=== PATIENT | female | born 1990 | race Caucasian/White ===

== ENCOUNTER 2018-05-08 07:28 | Emergency (ER) | payer OTHER ==
[~2018-05-08] VITALS: Ht 160 cm; Wt 47.6 kg
[~2018-05-08 07:28] MED LIST: BENTYL 20 MG TA20 M1 PO; CARAFATE 1 GM TA1 G1 PO; NOHOMEMEDICATIONS; ZOFRAN ODT4 MG DISSOLVE
[2018-05-08 07:52] LABS: HEMATOCRIT 44.5 % (37.0-47.0); HEMOGLOBIN 14.9 gm/dL (12.0-15.0); MCH 30.9 pg (26.0-34.0); MCHC 33.5 g/dL (28.0-37.0); MCV 92.3 fL (80.0-100.0); NUCLEATED RBCS 0 /100WBC; PLATELET COUNT* 187 thou/uL (150-400); RBC 4.82 mil/uL (4.20-5.00); RDW-CV 12.8 % (10.5-14.5); WBC 11.1 thou/uL (4.0-11.0)
[2018-05-08 07:56] LABS: CALCIUM 9.1 mg/dL (8.5-10.1); CREATININE 0.6 mg/dL (0.6-1.3); POTASSIUM 3.7 mmol/L (3.5-5.1)
[2018-05-08 08:01] LABS: ALBUMIN 3.8 g/dL (3.4-5.0); TOTAL BILIRUBIN 0.7 mg/dL (<0.1-1.0); TOTAL PROTEIN 7.7 g/dL (6.4-8.2)
[2018-05-08] MEDS ORDERED: ZOFRAN ODT4 MG SUBLING (08:06)
[2018-05-08 08:15] LABS: ABSOLUTE LYMPHOCYTES 0.4 thou/uL (0.8-5.3); ABSOLUTE NEUTROPHILS 10.7 thou/uL (1.6-8.1); PLATELET ESTIMATE ADEQUATE
[2018-05-08 08:23] VITALS: BP 113/69
== END 2018-05-08 08:24 | disposition home or self-care (01) ==
LOC: M.ERS 07:28
PROVIDERS: Family Medicine
DX: R11.2 Nausea with vomiting, unspecified (principal); R19.7 Diarrhea, unspecified; Z88.1 Allergy status to other antibiotic agents; Z88.5 Allergy status to narcotic agent; Z88.0 Allergy status to penicillin

== ENCOUNTER 2021-03-09 15:55 | Emergency (ER) | payer OTHER ==
[~2021-03-09] VITALS: Ht 160 cm; Wt 52.2 kg
[~2021-03-09 15:55] MED LIST changes: +ZOFRAN ODT4 MG SUBLING
[2021-03-09 16:54] VITALS: BP 124/70
== END 2021-03-09 16:55 | disposition home or self-care (01) ==
LOC: M.ERS 15:55
DX: R20.2 Paresthesia of skin (principal); Z88.1 Allergy status to other antibiotic agents; Z88.5 Allergy status to narcotic agent; Z88.0 Allergy status to penicillin